=== PATIENT | male | born 1940 | race Caucasian/White ===

== ENCOUNTER 2023-02-04 12:11 | Inpatient (IN) | payer BC, MEDICARE ==
[2023-02-04 13:00] LABS: #Eosinphils 0.1 10x3/uL (0.0-0.5); #Monocytes 0.7 10x3/uL (0.0-1.1); #Neutrophils 6.5 10x3/uL (1.5-8.4); %Basophils 0.5 % (0.0-2.0); %Eosinophils 1.2 % (0.0-6.0); %Neutrophils 83.9 % (40.0-75.0); Hematocrit 39.7 % (38.8-50.0); Hemoglobin 13.2 g/dL (13.5-17.5); Mean Corpuscular HGB CONC 33.2 g/dL (32.0-36.0); Mean Corpuscular Hemoglobin 32.6 pg (27.0-33.0); Mean Platelet Volume 10.9 fl (7.4-10.4); Platelet Count 150 10x3/uL (150-450); Red Blood Cell (RBC) Count 4.05 10x6/uL (4.32-5.72); White Blood Cell (WBC) Count 7.8 10x3/uL (3.5-10.5)
[2023-02-04 13:07] LABS: ALT (SGPT) 13 U/L (8-55); AST (SGOT) 23 U/L (5-34); Albumin 4.6 g/dL (3.4-4.8); Alkaline Phosphatase 86 U/L (40-110); Anion Gap 18 mmol/L (10-20); BUN (Urea Nitrogen) 29 mg/dL (8.4-25.7); Bilirubin, Total 1.4 mg/dL (0.2-1.2); Calc. Creatinine Clearance 0 mL/min (70-130); Calcium 9.5 mg/dL (7.8-10.44); Carbon Dioxide 25 mmol/L (23-31); Chloride 99 mmol/L (98-107); Estimated GFR 31; Globulin 2.9 g/dL (2.4-3.5); Glucose 100 mg/dL (83-110); Magnesium 1.8 mg/dL (1.6-2.6); Potassium 4.1 mmol/L (3.5-5.1); Protein, Total 7.5 g/dL (5.8-8.1); Sodium 138 mmol/L (136-145)
[2023-02-04 13:10] LABS: Troponin I 0.035 ng/mL (< 0.028)
[2023-02-04] MEDS ORDERED: Dexamethasone 10 MG/ML VIAL ONE (13:22)
[2023-02-04 14:05] LABS: SARS-CoV-2 NAA Rapid Test DETECTED (NotDetected)
[2023-02-04] MEDS ORDERED: Aspirin Chewable 81 MG TAB ONE (14:11)
[2023-02-04] MEDS ORDERED: Ondansetron PF 4 MG/2 ML Vial ONE (14:11)
[2023-02-04] MEDS ORDERED: Morphine 4 MG/ML VIAL ONE (14:11)
[2023-02-04] MEDS ORDERED: Ondansetron ODT 4 MG TAB PO PRN (16:27)
[2023-02-04] MEDS ORDERED: Acetaminophen 325 MG TAB PO PRN (16:27)
[2023-02-04] MEDS ORDERED: Ondansetron PF 4 MG/2 ML Vial IVP PRN (16:27)
[2023-02-04 23:05] VITALS: BMI 30.8
[2023-02-05 05:02] LABS: Anion Gap 16 mmol/L (10-20); BUN (Urea Nitrogen) 38 mg/dL (8.4-25.7); Calc. Creatinine Clearance 32 mL/min (70-130); Calcium 8.9 mg/dL (7.8-10.44); Carbon Dioxide 24 mmol/L (23-31); Chloride 101 mmol/L (98-107); Estimated GFR 25; Glucose 212 mg/dL (83-110); Potassium 4.3 mmol/L (3.5-5.1); Sodium 137 mmol/L (136-145)
[2023-02-05 05:13] LABS: #Monocytes 0.3 10x3/uL (0.0-1.1); #Neutrophils 3.3 10x3/uL (1.5-8.4); %Basophils 0.3 % (0.0-2.0); %Lymphocytes 9.3 % (18.0-47.0); %Monocytes 6.8 % (0.0-10.0); %Neutrophils 83.1 % (40.0-75.0); Hematocrit 34.3 % (38.8-50.0); Hemoglobin 11.3 g/dL (13.5-17.5); Mean Corpuscular HGB CONC 32.9 g/dL (32.0-36.0); Mean Corpuscular Hemoglobin 32.5 pg (27.0-33.0); Mean Corpuscular Volume 98.6 fl (81.2-95.1); Mean Platelet Volume 11.5 fl (7.4-10.4); Platelet Count 135 10x3/uL (150-450); RBC Distribution Width 14.2 % (11.5-14.5); Red Blood Cell (RBC) Count 3.48 10x6/uL (4.32-5.72)
[2023-02-05] MEDS ORDERED: Dexamethasone 4 MG TAB PO SCH (08:00)
[2023-02-05] MEDS ORDERED: Sodium Chloride 0.9% 500 ML IV SCH (08:30)
[2023-02-05] MEDS ORDERED: Zinc Gluconate 50 MG TAB PO SCH (09:00)
[2023-02-05] MEDS ORDERED: Sodium Chloride 0.9% 1,000 ML IV SCH (09:00)
[2023-02-05 09:02] LABS: Troponin I 0.024 ng/mL (< 0.028)
[2023-02-05] MEDS ORDERED: Apixaban 2.5 MG TAB PO SCH (09:15)
[2023-02-05] MEDS: Sacubitril 24MG/Valsartan 26 MG TAB PO SCH ×2 (12:07→21:50)
[2023-02-05] MEDS: Zinc Sulfate 220 MG CAP PO SCH (12:07)
[2023-02-05] MEDS: Carvedilol 3.125 MG TAB PO SCH ×2 (12:08→21:50)
[2023-02-05] MEDS ORDERED: Atorvastatin Calcium 20 MG TAB PO SCH (21:00)
[2023-02-05] MEDS: Apixaban 2.5 MG TAB PO SCH (21:50)
[2023-02-05] MEDS: Guaifenesin DM 100-10/5 ML UDCUP PO PRN (22:28)
[2023-02-06 04:35] LABS: #Monocytes 0.7 10x3/uL (0.0-1.1); #Neutrophils 7.2 10x3/uL (1.5-8.4); %Basophils 0.1 % (0.0-2.0); %Lymphocytes 5.8 % (18.0-47.0); %Neutrophils 85.5 % (40.0-75.0); Hematocrit 33.6 % (38.8-50.0); Hemoglobin 10.9 g/dL (13.5-17.5); Mean Corpuscular HGB CONC 32.4 g/dL (32.0-36.0); Mean Corpuscular Volume 98.5 fl (81.2-95.1); Mean Platelet Volume 11.2 fl (7.4-10.4); Platelet Count 132 10x3/uL (150-450); RBC Distribution Width 14.1 % (11.5-14.5); Red Blood Cell (RBC) Count 3.41 10x6/uL (4.32-5.72); White Blood Cell (WBC) Count 8.4 10x3/uL (3.5-10.5)
[2023-02-06 04:58] LABS: Anion Gap 14 mmol/L (10-20); BUN (Urea Nitrogen) 43 mg/dL (8.4-25.7); Calc. Creatinine Clearance 43 mL/min (70-130); Calcium 8.5 mg/dL (7.8-10.44); Carbon Dioxide 24 mmol/L (23-31); Chloride 101 mmol/L (98-107); Estimated GFR 36; Glucose 116 mg/dL (83-110); Potassium 4.1 mmol/L (3.5-5.1); Sodium 135 mmol/L (136-145)
[2023-02-06] MEDS ORDERED: ALPRAZolam 0.25 MG TAB PO PRN (09:30)
[2023-02-06] MEDS ORDERED: Dexamethasone 4 MG TAB PO SCH (09:45)
[2023-02-06] MEDS: Apixaban 2.5 MG TAB PO SCH ×2 (09:50→21:26)
[2023-02-06] MEDS: Carvedilol 3.125 MG TAB PO SCH ×2 (09:51→21:26)
[2023-02-06] MEDS: Zinc Sulfate 220 MG CAP PO SCH (09:51)
[2023-02-06] MEDS: Sacubitril 24MG/Valsartan 26 MG TAB PO SCH ×2 (09:52→21:25)
[2023-02-06] MEDS ORDERED: REMDESIVIR 200 MG in Sodium Chloride 0.9% 250 ML 210 ML IV SCH (13:45)
[2023-02-06] MEDS ORDERED: Ipratropium 200 Puff Oral Inhaler INH PRN (17:07)
[2023-02-06] MEDS: Polyethylene Glycol 3350 17 GM Packet PO PRN (18:46)
[2023-02-06] MEDS: Guaifenesin DM 100-10/5 ML UDCUP PO PRN ×2 (21:27→21:50)
[2023-02-07 05:07] LABS: Hematocrit 31.9 % (38.8-50.0); Hemoglobin 10.5 g/dL (13.5-17.5); Mean Corpuscular HGB CONC 32.9 g/dL (32.0-36.0); Mean Corpuscular Hemoglobin 32.5 pg (27.0-33.0); Mean Corpuscular Volume 98.8 fl (81.2-95.1); Mean Platelet Volume 11.3 fl (7.4-10.4); Platelet Count 119 10x3/uL (150-450); RBC Distribution Width 14.3 % (11.5-14.5); Red Blood Cell (RBC) Count 3.23 10x6/uL (4.32-5.72); White Blood Cell (WBC) Count 4.8 10x3/uL (3.5-10.5)
[2023-02-07 05:08] LABS: Anion Gap 11 mmol/L (10-20); BUN (Urea Nitrogen) 44 mg/dL (8.4-25.7); Calc. Creatinine Clearance 57 mL/min (70-130); Calcium 8.3 mg/dL (7.8-10.44); Carbon Dioxide 25 mmol/L (23-31); Chloride 102 mmol/L (98-107); Estimated GFR 50; Glucose 99 mg/dL (83-110); Potassium 4.5 mmol/L (3.5-5.1); Sodium 133 mmol/L (136-145)
[2023-02-07 05:09] LABS: ALT (SGPT) 11 U/L (8-55); AST (SGOT) 15 U/L (5-34); Albumin 3.2 g/dL (3.4-4.8); Alkaline Phosphatase 51 U/L (40-110); Bilirubin, Direct 0.2 mg/dL (0.1-0.3); Bilirubin, Total 0.4 mg/dL (0.2-1.2); Protein, Total 5.7 g/dL (5.8-8.1)
[2023-02-07 05:33] LABS: MDiff Complete? YES
[2023-02-07 05:36] LABS: Platelet Adequacy Comment Appears Decreased
[2023-02-07 05:38] LABS: RBC Morph Comment Within Normal Limits
[2023-02-07 05:41] LABS: Band 4 % (5-11); Lymphocytes 11 % (21-51); Monocytes 13 % (0-10); Neutrophil 72 % (42-75)
[2023-02-07] MEDS: Dexamethasone 1 MG TAB PO SCH (09:37)
[2023-02-07] MEDS: Zinc Sulfate 220 MG CAP PO SCH (09:37)
[2023-02-07] MEDS: Furosemide 40 MG TAB PO SCH (09:38)
[2023-02-07] MEDS: Apixaban 2.5 MG TAB PO SCH ×2 (09:38→21:00)
[2023-02-07] MEDS: Sacubitril 24MG/Valsartan 26 MG TAB PO SCH ×2 (09:38→21:00)
[2023-02-07] MEDS: Carvedilol 3.125 MG TAB PO SCH ×2 (09:38→21:00)
[2023-02-07] MEDS: REMDESIVIR 100 MG in Sodium Chloride 0.9% 250 ML 230 ML IV SCH (15:36)
[2023-02-07] MEDS: Guaifenesin DM 100-10/5 ML UDCUP PO PRN (23:17)
[2023-02-07] MEDS: Polyethylene Glycol 3350 17 GM Packet PO PRN (23:17)
[2023-02-08] MEDS ORDERED: Ventolin HFA Inhaler 60 PUFF INHALER INH PRN (00:11)
[2023-02-08] MEDS: Mometasone 200 MCG/PUFF (1 INHALER) INH SCH ×2 (00:30→07:20)
[2023-02-08 04:02] LABS: #Monocytes 0.5 10x3/uL (0.0-1.1); %Basophils 0.2 % (0.0-2.0); %Lymphocytes 16.7 % (18.0-47.0); %Monocytes 12.7 % (0.0-10.0); %Neutrophils 70.2 % (40.0-75.0); Hematocrit 31.6 % (38.8-50.0); Hemoglobin 10.4 g/dL (13.5-17.5); Mean Corpuscular HGB CONC 32.9 g/dL (32.0-36.0); Mean Corpuscular Hemoglobin 32.4 pg (27.0-33.0); Mean Corpuscular Volume 98.4 fl (81.2-95.1); Platelet Count 124 10x3/uL (150-450); RBC Distribution Width 14.1 % (11.5-14.5); Red Blood Cell (RBC) Count 3.21 10x6/uL (4.32-5.72); White Blood Cell (WBC) Count 4.3 10x3/uL (3.5-10.5)
[2023-02-08 04:12] LABS: Anion Gap 12 mmol/L (10-20); BUN (Urea Nitrogen) 52 mg/dL (8.4-25.7); Calc. Creatinine Clearance 61 mL/min (70-130); Calcium 8.8 mg/dL (7.8-10.44); Carbon Dioxide 28 mmol/L (23-31); Chloride 101 mmol/L (98-107); Estimated GFR 54; Glucose 114 mg/dL (83-110); Sodium 136 mmol/L (136-145)
[2023-02-08 04:13] LABS: ALT (SGPT) 11 U/L (8-55); AST (SGOT) 17 U/L (5-34); Albumin 3.2 g/dL (3.4-4.8); Alkaline Phosphatase 49 U/L (40-110); Bilirubin, Direct 0.2 mg/dL (0.1-0.3); Bilirubin, Total 0.4 mg/dL (0.2-1.2); Protein, Total 5.8 g/dL (5.8-8.1)
[2023-02-08] MEDS ORDERED: Apixaban 5 MG TAB PO SCH (09:00)
[2023-02-08 09:43] VITALS: TEMP 97.7
[2023-02-08] MEDS: Carvedilol 3.125 MG TAB PO SCH (10:05)
[2023-02-08] MEDS: Furosemide 40 MG TAB PO SCH (10:05)
[2023-02-08] MEDS: Zinc Sulfate 220 MG CAP PO SCH (10:06)
[2023-02-08] MEDS: Sacubitril 24MG/Valsartan 26 MG TAB PO SCH (10:06)
[2023-02-08] MEDS: Dexamethasone 1 MG TAB PO SCH (10:06)
[2023-02-08] MEDS: Guaifenesin DM 100-10/5 ML UDCUP PO PRN (10:07)
[2023-02-08] MEDS: Polyethylene Glycol 3350 17 GM Packet PO PRN (10:08)
[2023-02-08 13:02] VITALS: BP 109/69
[2023-02-08] MEDS: REMDESIVIR 100 MG in Sodium Chloride 0.9% 250 ML 230 ML IV SCH (13:32)
== END 2023-02-08 16:20 | disposition home or self-care (01) | DRG 178 ==
LOC: CSHERS 12:11 → CSHERHOLD 16:08 → CSHTELE 22:12
PROVIDERS: ADMIT Hospitalist; ATTEND Internal Medicine
PROC: 8E0ZXY6 Isolation (ICD-10-PCS; principal; 2023-02-04)
PROC: XW033E5 Introduction of Remdesivir Anti-infective into Peripheral Vein, Percutaneous Approach, New Technology Group 5 (ICD-10-PCS; 2023-02-06)
DX: U07.1 COVID-19 (principal); N17.9 Acute kidney failure, unspecified; I48.91 Unspecified atrial fibrillation; I50.9 Heart failure, unspecified; R77.8 Other specified abnormalities of plasma proteins; I11.0 Hypertensive heart disease with heart failure; E78.5 Hyperlipidemia, unspecified; I25.10 Atherosclerotic heart disease of native coronary artery without angina pectoris; R73.9 Hyperglycemia, unspecified; I12.9 Hypertensive chronic kidney disease with stage 1 through stage 4 chronic kidney disease, or unspecified chronic kidney disease; N18.30 Chronic kidney disease, stage 3 unspecified; I35.0 Nonrheumatic aortic (valve) stenosis; T38.0X5A Adverse effect of glucocorticoids and synthetic analogues, initial encounter; Z79.01 Long term (current) use of anticoagulants; Z95.1 Presence of aortocoronary bypass graft; Z90.49 Acquired absence of other specified parts of digestive tract; Z98.890 Other specified postprocedural states; Z88.5 Allergy status to narcotic agent; Z91.013 Allergy to seafood; Z95.0 Presence of cardiac pacemaker; Z79.899 Other long term (current) drug therapy
CPT/HCPCS: 36415; 71045; 71046; 80048; 80053; 80076; 83735; 83880; 84484; 85025; 85379; 86140; 93005; 94664; 94760; 96374; 96375; J0248; J1100; J2270; J2405; J7050; J8540

== ENCOUNTER 2023-12-02 11:27 | Emergency (ER) | payer MEDICARE ==
[2023-12-02 12:03] LABS: #Basophils 0.04 10x3/uL (0.0-0.2); #Eosinphils 0.05 10x3/uL (0.0-0.5); #Neutrophils 4.71 10x3/uL (1.5-8.4); %Basophils 0.7 % (0.0-2.0); %Eosinophils 0.8 % (0.0-6.0); %Lymphocytes 9.4 % (18.0-47.0); %Monocytes 10.1 % (0.0-10.0); %Neutrophils 78.8 % (40.0-75.0); Hematocrit 32.5 % (38.8-50.0); Hemoglobin 10.2 g/dL (13.5-17.5); Mean Corpuscular HGB CONC 31.4 g/dL (32.0-36.0); Mean Corpuscular Volume 89.3 fL (81.2-95.1); Mean Platelet Volume 12.3 fL (7.4-10.4); Platelet Count 182 10x3/uL (150-450); RBC Distribution Width 19.4 % (11.5-14.5); Red Blood Cell (RBC) Count 3.64 10x6/uL (4.32-5.72)
[2023-12-02 12:20] LABS: ALT (SGPT) 7 U/L (8-55); AST (SGOT) 13 U/L (5-34); Albumin 3.7 g/dL (3.4-4.8); Alkaline Phosphatase 82 U/L (40-110); Anion Gap 15 mmol/L (10-20); BUN (Urea Nitrogen) 29 mg/dL (8.4-25.7); Bilirubin, Total 1.3 mg/dL (0.2-1.2); Calc. Creatinine Clearance 0 mL/min (70-130); Calcium 9.6 mg/dL (7.8-10.44); Carbon Dioxide 28 mmol/L (23-31); Chloride 102 mmol/L (98-107); Estimated GFR 41; Glucose 117 mg/dL (83-110); Magnesium 2.1 mg/dL (1.6-2.6); Potassium 4.4 mmol/L (3.5-5.1); Protein, Total 6.7 g/dL (5.8-8.1); Sodium 141 mmol/L (136-145)
[2023-12-02 12:23] LABS: Troponin I 0.023 ng/mL (< 0.028)
[2023-12-02] MEDS ORDERED: Furosemide 40 MG (4 mL) VIAL ONE (13:01)
== END 2023-12-02 13:52 | disposition home or self-care (01) ==
LOC: CSHERS 11:27
DX: I50.9 Heart failure, unspecified (principal); Z79.01 Long term (current) use of anticoagulants
CPT/HCPCS: 71045; 80053; 83735; 83880; 84484; 85025; 93005; J1940; 96374

== ENCOUNTER 2025-03-03 13:32 | Emergency (ER) | payer MEDICARE | END 2025-03-03 15:57 | disposition home or self-care (01) | LOC: CSHERS 13:32 | DX: S09.90XA Unspecified injury of head, initial encounter (principal); I50.9 Heart failure, unspecified; I48.91 Unspecified atrial fibrillation; Z79.01 Long term (current) use of anticoagulants; W18.30XA Fall on same level, unspecified, initial encounter | CPT/HCPCS: 70450; 71250; 72125; 74177 ==